=== PATIENT | male | born 1970 | race Caucasian/White ===

== ENCOUNTER 2017-06-15 19:26 | Emergency (ER) | payer MEDICAID ==
[2017-06-15 19:37] VITALS: BP 121/72; PULSE 102; RESP 18; TEMP 98.3; O2SAT 96
--- NOTE | 2017-06-15 20:03 | EDPHY ---
H & P Time Seen by Provider: 06/15/17 19:44 HPI/ROS: CHIEF COMPLAINT: "I need my meds refilled" HISTORY OF PRESENT ILLNESS: Patient is a 47-year-old male with a history of bipolar disorder who presents emergency department requesting his medications to be refilled. He states he ran out of his medications over the last week. He has the ability refills prescriptions on Saturday. Patient also complains of her recent staph infection around his face. This occurred because he was stressed out. It is noted that in the triage note states he has an infection in his anus and he wants treatment. He is not complaining of any anal symptoms to me REVIEW OF SYSTEMS: My complete review of systems is negative except as mentioned in the HPI. Past Medical/Surgical History: Attention deficit hyperactivity disorder, anger explosive disorder, OCD, borderline personality disorder, back pain Smoking Status: Never smoked Physical Exam: 36.8, 121/72, 102, 18, 96% on room air GENERAL: Well-appearing, in no acute distress, alert. HEENT: Eyes normal to inspection, normal pharynx, no signs of dehydration. Patient's face does not appear to have significant rash. I see no signs of staph infection. NECK: No thyromegaly, no lymphadenopathy, supple. RESPIRATORY: Clear to auscultation bilaterally, no rales, rhonchi or wheezing. CVS: Regular rate and rhythm, no rubs, murmurs, or gallops. ABDOMEN: Soft, nontender, nondistended, no organomegaly. BACK: Normal to inspection, no CVA tenderness. SKIN: Normal color, no rash, warm, dry. No pallor. EXTREMITIES: No pedal edema, no calf tenderness, no Homans sign or cords, no joint swelling. NEURO/PSYCH: Alert and oriented x3, normal mood and affect, normal motor sensory exam. No obvious cranial nerve deficit. Constitutional: Initial Vital Signs Temperature (C) 36.8 C 06/15/17 19:31 Heart Rate 102 H 06/15/17 19:31 Respiratory Rate 18 06/15/17 19:31 Blood Pressure 121/72 H 06/15/17 19:31 O2 Sat (%) 96 06/15/17 19:31 O2 Delivery Mode Room Air Allergies/Adverse Reactions: No Known Allergies Allergy (Verified 06/15/17 19:39) Home Medications: Medication Instructions Recorded Clonidine 06/15/17 Doxapram HCl 06/15/17 Klonopin 06/15/17 Lisdexamfetamine Dimesylate 60 mg PO DAILY #3 capsule 06/15/17 [Vyvanse] VYVANSE 06/15/17 Vistaril 06/15/17 Wellbutrin Xl 06/15/17 buPROPion SR [Wellbutrin 150mg SR 150 mg PO BID #3 tab 06/15/17 (*)] clonazePAM [Klonopin (*)] 2 mg PO HS 3 Days tab 06/15/17 hydrOXYzine HCL [Vistaril] 50 mg PO TID 3 Days tab 06/15/17 traMADol 06/15/17 Medical Decision Making ED Course/Re-evaluation: In the emergency department I discussed options with the patient. He will be given prescriptions to cover him until Saturday. He is given warnings prior to leaving. He will return with worsening symptoms. Differential Diagnosis: My differential includes but is not limited to borderline personality disorder, psychosis, medication refill, staph infection Departure - Departure Disposition: Home, Routine, Self-Care Clinical Impression: Medication refill Condition: Good Instructions: Medicine Refill (ED) Additional Instructions: Return with worsening symptoms or any other concerns. Referrals: [facility],. [Clinic] - 2-3 days, call for appt. Prescriptions: buPROPion SR [Wellbutrin 150mg SR (*)] 150 mg PO BID #3 tab clonazePAM [Klonopin (*)] 2 mg PO HS 3 Days tab hydrOXYzine HCL [Vistaril] 50 mg PO TID 3 Days tab Lisdexamfetamine Dimesylate [Vyvanse] 60 mg PO DAILY #3 capsule
== END 2017-06-15 20:21 | disposition home or self-care (01) ==
DX: Z76.0 Encounter for issue of repeat prescription (principal)

== ENCOUNTER → 2017-09-30 | Emergency (ER) | payer MEDICAID ==
[~2017-09-30] MED LIST: NALOXONE HCL 0.4 MG/ML INJ IVP ONE; NALOXONE HCL 0.4 MG/ML INJ ONE
--- NOTE | 2017-09-30 19:42 | CPEKG ---
Heart Rate: 71 RR Interval: 845 P-R Interval: 156 QRSD Interval: 78 QT Interval: 380 QTC Interval: 413 P Pecos: 61 QRS Pecos: 79 T Wave Pecos: 62 EKG Severity - NORMAL ECG - EKG Impression: SINUS RHYTHM Electronically Signed By: Marianna Goodwin 30-Sep-2017 21:20:43
--- NOTE | 2017-09-30 19:52 | EDPHY ---
H & P Time Seen by Provider: 09/30/17 19:38 HPI/ROS: CHIEF COMPLAINT: Altered mental status Limitations: Patient unable to provide any clinical history HISTORY OF PRESENT ILLNESS: 47-year-old male presents with altered mental status. EMS was called by a [place] on [facility] because this patient was sitting against the wall and was quite altered. On PD arrival, the patient apparently put a bunch of pills into his mouth. On EMS arrival, the patient was obtunded. A nasal airway was placed. Blood sugar was adequate and vital signs were normal. They found several pills next to the patient, but none in his mouth. No signs of injury/assault. REVIEW OF SYSTEMS: unable to determine Source: EMS - Medical/Surgical History Hx Asthma: No Hx Chronic Respiratory Disease: No Hx Diabetes: No Hx Cardiac Disease: No Hx Renal Disease: No Hx Cirrhosis: No Hx Alcoholism: No Hx HIV/AIDS: No Hx Splenectomy or Spleen Trauma: No Other PMH: ADHD, anger expolosive disorder, OCD, borderline personality disorder ,. slipped disc in back, - Social History Smoking Status: Never smoked Alcohol Use: Heavy - Physical Exam Exam: General Appearance: Obtunded Eyes: Pupils equal and round, 3 mm, roving eye movements ENT, Mouth: Mucous membranes moist, has a gag reflex, bites the tongue blade Neck: Normal inspection Respiratory: Lungs are clear to auscultation anteriorly Cardiovascular: Regular rate and rhythm Gastrointestinal: Abdomen is soft and nontender Neurological: Obtunded, looks at me when I apply a sternal rub, no spontaneous movement of extremities Skin: Warm and dry Extremities: Normal inspection Psychiatric: Unable to determine Constitutional: Initial Vital Signs Temperature (C) 36.2 C 09/30/17 19:55 Heart Rate 72 09/30/17 19:55 Respiratory Rate 18 09/30/17 19:55 Blood Pressure 110/72 09/30/17 19:55 O2 Sat (%) 96 09/30/17 19:55 O2 Delivery Mode Nasal Cannula O2 (L/minute) 2 Allergies/Adverse Reactions: No Known Allergies Allergy (Verified 06/15/17 19:39) Home Medications: Medication Instructions Recorded Clonidine 06/15/17 Doxapram HCl 06/15/17 buPROPion SR [Wellbutrin 150mg SR 150 mg PO BID #3 tab 06/15/17 (*)] clonazePAM [Klonopin (*)] 2 mg PO HS 3 Days tab 06/15/17 Medical Decision Making - Diagnostics EKG Interpretation: EKG interpreted by me reveals normal sinus rhythm, rate 71, no ST or T segment changes. Interpretation: Normal EKG Imaging Results: Head CT 09/30/17 19:47 Impression: Negative noncontrast CT of the brain. Results called to Dr. Marianna Goodwin at 8:20 PM at the time of the interpretation. Imaging: Discussed imaging studies w/ youth support worker Radiologist, I viewed and interpreted images myself ED Course/Re-evaluation: This patient presents with altered mental status, likely secondary to substance abuse. He has a gag reflex and is maintaining his airway adequately at this point. I examined the pill bottles that were present in the patient's belongings and no pills are missing from his prescribed amounts. Narcan 0.4 mg IV given without response. 8:30 p.m.-remains obtunded, grimaces to painful stimuli. CT scan of the brain is unremarkable. Laboratory tests significant only for alcohol level 325; urine tox screen is negative. Will continue to observe. 9:00 p.m.-signed over to Dr. Kaur at shift change. Differential Diagnosis: Altered mental status including but not limited to hypoglycemia, infectious process, electrolyte abnormality, head injury, CVA, and intoxicants. - Data Points Laboratory Results: Laboratory Results 09/30/17 19:53 09/30/17 19:53 Medications Given: Discontinued Medications Naloxone HCl (Narcan) 0.4 mg IVP EDNOW ONE Stop: 09/30/17 19:41 Last Admin: 09/30/17 19:40 Dose: 0.4 mg Departure - Departure Clinical Impression: Alcoholic intoxication Qualifiers: Complication of substance-induced condition: uncomplicated Qualified Code(s): F10.920 - Alcohol use, unspecified with intoxication, uncomplicated Condition: Good Instructions: Alcohol Intoxication (ED) Referrals: [facility] [Outside] - As per Instructions
[2017-09-30 20:09] LABS: PLATELET COUNT 380 10^3/uL (150-400)
[2017-10-01 00:03] VITALS: BP 98/58
== END ==
LOC: EDUNIT#
DX: F10.920 Alcohol use, unspecified with intoxication, uncomplicated (principal)
CPT/HCPCS: 80305; 96374; G0480; J2310

== ENCOUNTER 2017-10-01 11:35 | Emergency (ER) | payer MEDICAID | END 2017-10-01 11:45 | disposition left against medical advice (07) | DX: Z53.21 Procedure and treatment not carried out due to patient leaving prior to being seen by health care provider (principal) ==

== ENCOUNTER 2017-10-03 16:22 | Emergency (ER) | payer MEDICAID, OTHER ==
[2017-10-03 16:29] VITALS: BP 152/91
--- NOTE | 2017-10-03 17:13 | EDPHY ---
H & P Stated Complaint: wants meds refill/just got out of alf Time Seen by Provider: 10/03/17 17:12 HPI/ROS: CHIEF COMPLAINT: Requesting psychiatric medications HISTORY OF PRESENT ILLNESS: The patient is homeless, recently released from alf and does not access to his regular psychiatric medications which include Wellbutrin, Vyvanse and Atarax. The patient denies any homicidal or suicidal ideation. The patient denies any acute medical complaints. The patient has not yet established mental health care in the community. REVIEW OF SYSTEMS: A comprehensive 10 point review of systems is otherwise negative aside from elements mentioned in the history of present illness. Source: Patient - Personal History Current Tetanus/Diphtheria Vaccine: Yes - Medical/Surgical History Hx Asthma: No Hx Chronic Respiratory Disease: No Hx Diabetes: No Hx Cardiac Disease: No Hx Renal Disease: No Hx Cirrhosis: No Hx Alcoholism: No Hx HIV/AIDS: No Hx Splenectomy or Spleen Trauma: No Other PMH: ADHD, anger expolosive disorder, OCD, borderline personality disorder ,. slipped disc in back, - Social History Smoking Status: Never smoked - Physical Exam Exam: General Appearance: Alert, no distress Eyes: Pupils equal and round no pallor or injection ENT, Mouth: Mucous membranes moist Respiratory: There are no retractions, lungs are clear to auscultation Cardiovascular: Regular rate and rhythm Gastrointestinal: Abdomen is soft and nontender, no masses, bowel sounds normal Neurological: 5/5 strength all 4 extremities Skin: Warm and dry, no rashes Musculoskeletal: Neck is supple nontender Extremities: symmetrical, full range of motion Psychiatric: Patient is oriented X 3, there is no agitation, cooperative, denies suicidal or homicidal ideation Constitutional: Initial Vital Signs Temperature (C) 36.6 C 10/03/17 16:27 Heart Rate 87 10/03/17 16:27 Respiratory Rate 16 10/03/17 16:27 Blood Pressure 152/91 H 10/03/17 16:27 O2 Sat (%) 96 10/03/17 16:27 O2 Delivery Mode Room Air Allergies/Adverse Reactions: No Known Allergies Allergy (Verified 10/03/17 16:25) Home Medications: Medication Instructions Recorded Clonidine 06/15/17 Doxapram HCl 06/15/17 buPROPion SR [Wellbutrin 150mg SR 150 mg PO BID #3 tab 02/24/18 (*)] clonazePAM [Klonopin (*)] 2 mg PO HS 3 Days tab 06/15/17 Lisdexamfetamine Dimesylate 60 mg PO DAILY #10 tab.chew 10/03/17 [Vyvanse] VYVANSE 10/03/17 Vistaril 10/03/17 buPROPion XL [Wellbutrin Xl] 300 mg PO DAILY #20 tab 10/03/17 hydrOXYzine HCL [Vistaril] 50 mg PO TID #30 tab 10/03/17 Medical Decision Making ED Course/Re-evaluation: The patient has been provided a short refill of his regular medications. He has been referred to the walk-in clinic at [facility] to establish local psychiatric care. The patient does not meet criteria for 72 hr mental health hold. He has no additional acute complaints. Departure - Departure Disposition: Home, Routine, Self-Care Clinical Impression: OCD (obsessive compulsive disorder) Condition: Good Instructions: Obsessive Compulsive Disorder (DC) Additional Instructions: You have been given a 10 day course of your medications. We will be unable to refill this in the emergency department in the future. [facility] does or operate a walk-in clinic and you have been provided the information. You can establish local psychiatric care with their organization. Additionally , [facility] would be happy to see you to establish primary care. Referrals: [facility],. [Clinic] - As per Instructions [facility] - As per Instructions
--- NOTE | 2017-10-03 17:46 | ASMTCMCOM ---
CM Note CM Note Notes: Chart review and noted that patient has been in this ER 4 times since May of this year, 3 of which have been in the past 4 days. Patient presented today for request for "psych medication" prescriptions and I noted that patient presented 2 days ago for similar request while we were in [facility] down time. See ER reports (09/30, 10/01, and 10/03/17) Patient was dischared prior to my meeting with him. Prescriptions were given to him per his request, along with instructions for follow up with [facility] and/or [facility]. High risk screen completed Date Signed: 10/03/2017 05:45 PM Electronically Signed By:Leeanna Velasquez RN
== END 2017-10-03 17:33 | disposition home or self-care (01) ==
DX: F42.9 Obsessive-compulsive disorder, unspecified (principal)

== ENCOUNTER 2017-10-07 13:16 | Emergency (ER) | payer MEDICAID ==
[2017-10-07 13:30] VITALS: BP 144/108
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
== END 2017-10-07 14:04 ==
LOC: EDUNIT# → EDBD
DX: S43.401A Unspecified sprain of right shoulder joint, initial encounter (principal); W23.1XXA Caught, crushed, jammed, or pinched between stationary objects, initial encounter; Y99.8 Other external cause status; Y93.89 Activity, other specified